=== PATIENT | male | born 1980 | race Caucasian/White ===

== ENCOUNTER 2017-05-07 05:28 | Emergency (ER) | payer OTHER ==
[2017-05-07] MEDS ORDERED: IBUP-1222 PO (05:37)
[2017-05-07] MEDS ORDERED: HYDROcodone/APAP 10/325 MG TABLET PO ONE ×2 (06:00→07:30)
[2017-05-07] MEDS ORDERED: DIAZEPAM 5 MG TABLET PO ONE (06:00)
[2017-05-07] MEDS ORDERED: DIAZEPAM 5 MG TABLET ONE (06:01)
[2017-05-07] MEDS ORDERED: HYDROcodone/APAP 10/325 MG TABLET ONE ×2 (06:02→07:06)
[2017-05-07] MEDS ORDERED: KETOROLAC 30 MG/1 ML ONE (07:05)
[2017-05-07] MEDS ORDERED: KETOROLAC 30 MG/1 ML IM ONE (07:30)
[2017-05-07] MEDS ORDERED: PROMETHAZINE 25 MG/ML, 1ML ONE (07:46)
[2017-05-07] MEDS ORDERED: PROMETHAZINE 25 MG/ML, 1ML IM ONE (08:00)
[2017-05-07 09:27] VITALS: BP 109/76
== END 2017-05-07 09:33 | disposition home or self-care (01) ==
LOC: ED 06:45
DX: S39.012A Strain of muscle, fascia and tendon of lower back, initial encounter (principal); X58.XXXA Exposure to other specified factors, initial encounter; Y93.89 Activity, other specified; Y92.89 Other specified places as the place of occurrence of the external cause; Y99.8 Other external cause status
CPT/HCPCS: 81001; 96372; 99284; J1885; J2550

== ENCOUNTER 2017-08-05 16:57 | Emergency (ER) | payer OTHER ==
[~2017-08-05] VITALS: Ht 188 cm; Wt 124.1 kg
[~2017-08-05 16:57] MED LIST: IBUP-1222 PO
[2017-08-05 17:00] VITALS: BP 150/93
[2017-08-05] MEDS ORDERED: IBUPROFEN 200 MG TABLET ONE (18:10)
[2017-08-05] MEDS ORDERED: IBUPROFEN 200 MG TABLET PO ONE (18:30)
== END 2017-08-05 19:02 | disposition home or self-care (01) ==
LOC: ED 18:45
DX: R07.89 Other chest pain (principal); H57.8 Other specified disorders of eye and adnexa; R42 Dizziness and giddiness
CPT/HCPCS: 71046; 93005; 99284

== ENCOUNTER 2017-11-20 12:41 | Inpatient (IN) | payer OTHER ==
[~2017-11-20] VITALS: Ht 188 cm; Wt 121.5 kg
[2017-11-20] MEDS ORDERED: MORPHINE SULFATE 4 MG/ML, 1ML IVPush PRN (13:30)
[2017-11-20] MEDS ORDERED: ONDANSETRON 2MG/ML, 2ML IVPush ONE (13:30)
[2017-11-20] MEDS ORDERED: SODIUM CHLORIDE FLUSH 10ML SYR IVF ONE (13:30)
[2017-11-20] MEDS ORDERED: PSYL0.5215 PO (13:35)
[2017-11-20] MEDS ORDERED: POLY17PO5 PO (13:35)
[2017-11-20] MEDS ORDERED: ONDANSETRON ODT 4 MG ONE (13:42)
[2017-11-20] MEDS ORDERED: MORPHINE SULFATE 4 MG/ML, 1ML ONE (13:42)
[2017-11-20 13:43] LABS: BASOPHILS # (AUTO) 0.04 x10^3/uL (0-0.1); BASOPHILS % (AUTO) 1 % (0-1); EOSINOPHILS # (AUTO) 0.08 x10^3/uL (0-0.4); EOSINOPHILS % (AUTO) 1 % (1-7); LYMPHOCYTES # (AUTO) 2.07 x10^3/uL (1-3.4); LYMPHOCYTES % (AUTO) 35 % (22-44); MD NO; MEAN CORPUSCULAR HEMOGLOBIN 30.2 pg (27.5-34.5); MEAN CORPUSCULAR HGB CONC 33.8 g/dL (33.2-36.2); MEAN CORPUSCULAR VOLUME 89.4 fL (81-97); MONOCYTES # (AUTO) 0.42 x10^3/uL (0.2-0.8); MONOCYTES % (AUTO) 7 % (2-9); NEUTROPHILS # (AUTO) 3.34 x10^3/uL (1.8-6.8); NEUTROPHILS % (AUTO) 56 % (42-75); PLATELET COUNT 220 x10^3/uL (130-400); RED BLOOD COUNT 5.61 x10^6/uL (4.38-5.82); RED CELL DISTRIBUTION WIDTH 13.5 % (9.4-14.8)
[2017-11-20 13:56] LABS: ALANINE AMINOTRANSFERASE 24 U/L (12-78); ALBUMIN 3.8 g/dL (3.4-5.0); ANION GAP 8 mmol/L (5-15); CALCIUM 8.3 mg/dL (8.5-10.1); CHLORIDE 108 mmol/L (98-107); CREATININE 0.98 mg/dL (0.7-1.3)
[2017-11-20 13:59] LABS: ALKALINE PHOSPHATASE 96 U/L (45-117); BILIRUBIN,TOTAL 0.6 mg/dL (0.2-1.0); TOTAL PROTEIN 7.7 g/dL (6.4-8.2)
[2017-11-20] MEDS ORDERED: OMNIPAQUE 350 MG/ML, 100ML BOTTLE ONE (14:50)
[2017-11-20] MEDS ORDERED: CEFOTETAN PMX 1GM/50ML 50 ML ONE (15:13)
[2017-11-20] MEDS ORDERED: METRONIDAZOLE PMX 500MG/100ML 100 ML IV ONE (15:30)
[2017-11-20] MEDS ORDERED: CEFOTETAN PMX 2GM/50ML 50 ML IV ONE (15:30)
[2017-11-20] MEDS ORDERED: METRONIDAZOLE PMX 500MG/100ML 100 ML ONE (16:46)
[2017-11-20] MEDS: SODIUM CHLORIDE 0.9% 1,000 ML IV SCH ×2 (16:47→22:00)
[2017-11-20] MEDS ORDERED: morphine SULFATE 10 MG/ML, 1ML IVPush PRN (17:00)
[2017-11-20 20:00] VITALS: BP 108/66
[2017-11-20] MEDS: METRONIDAZOLE PMX 500MG/100ML 100 ML IV SCH (23:10)
[2017-11-21 02:21] VITALS: BP 118/76
[2017-11-21] MEDS ORDERED: CEFOTETAN PMX 2GM/50ML 50 ML IV SCH (05:00)
[2017-11-21] MEDS: SODIUM CHLORIDE 0.9% 1,000 ML IV SCH (05:02)
[2017-11-21] MEDS: METRONIDAZOLE PMX 500MG/100ML 100 ML IV SCH (05:02)
[2017-11-21 05:18] LABS: BASOPHILS # (AUTO) 0.04 x10^3/uL (0-0.1); BASOPHILS % (AUTO) 1 % (0-1); EOSINOPHILS % (AUTO) 2 % (1-7); LYMPHOCYTES # (AUTO) 1.58 x10^3/uL (1-3.4); LYMPHOCYTES % (AUTO) 32 % (22-44); MD NO; MEAN CORPUSCULAR HEMOGLOBIN 30.1 pg (27.5-34.5); MEAN CORPUSCULAR HGB CONC 33.6 g/dL (33.2-36.2); MEAN CORPUSCULAR VOLUME 89.4 fL (81-97); MEAN PLATELET VOLUME 9.1 fL (7.4-10.4); MONOCYTES # (AUTO) 0.43 x10^3/uL (0.2-0.8); MONOCYTES % (AUTO) 9 % (2-9); NEUTROPHILS # (AUTO) 2.76 x10^3/uL (1.8-6.8); NEUTROPHILS % (AUTO) 56 % (42-75); PLATELET COUNT 203 x10^3/uL (130-400); RED BLOOD COUNT 5.26 x10^6/uL (4.38-5.82); RED CELL DISTRIBUTION WIDTH 13.8 % (9.4-14.8)
[2017-11-21 05:23] LABS: ANION GAP 7 mmol/L (5-15); CALCIUM 8.6 mg/dL (8.5-10.1); CHLORIDE 110 mmol/L (98-107)
[2017-11-21 06:56] VITALS: BP 147/70
[2017-11-21] MEDS: PANTOPRAZOLE 40 MG IV IVPush SCH ×2 (07:30→08:41)
[2017-11-21] MEDS ORDERED: metroNIDAZOLE 500 MG TABLET PO SCH (10:00)
[2017-11-21 13:04] VITALS: BP 130/79
[2017-11-21] MEDS ORDERED: FLU VACC QS2017-18 (36MOS+) UP/PF 0.5 ML IM-VACC ONE (14:00)
[2017-11-21] MEDS ORDERED: METR500T PO (14:51)
[2017-11-21] MEDS ORDERED: CIPR500T87 PO (14:51)
[2017-11-21] MEDS ORDERED: OMEP-110 PO (14:51)
[2017-11-21] MEDS ORDERED: CIPROFLOXACIN 500 MG TABLET PO SCH (15:00)
[2017-11-21] MEDS ORDERED: SODIUM CHLORIDE 0.9% 1,000 ML IV SCH (16:47)
== END 2017-11-21 17:05 | disposition home or self-care (01) | DRG 378 ==
LOC: ED 14:58 → EDIP 15:42 → 4NOR 18:25 → DCLOUNGE 11-21 14:45
PROVIDERS: ADMIT Internal Medicine Pulmonary Disease; ATTEND Internal Medicine Pulmonary Disease
DX: K57.21 Diverticulitis of large intestine with perforation and abscess with bleeding (principal); K56.699 Other intestinal obstruction unspecified as to partial versus complete obstruction; F19.20 Other psychoactive substance dependence, uncomplicated; K29.71 Gastritis, unspecified, with bleeding; G89.29 Other chronic pain; Z80.0 Family history of malignant neoplasm of digestive organs; Z85.038 Personal history of other malignant neoplasm of large intestine; E66.9 Obesity, unspecified; Z68.34 Body mass index [BMI] 34.0-34.9, adult; Z23 Encounter for immunization
CPT/HCPCS: 36415; 74177; 80048; 80053; 82378; 85025; 90686; 96365; 96368; 96375; J2405; Q9967; C9113; J7030; S0074

== ENCOUNTER 2018-06-22 17:46 | Emergency (ER) | payer OTHER ==
[~2018-06-22] VITALS: Ht 188 cm; Wt 125.5 kg
[~2018-06-22 17:46] MED LIST changes: +CIPR500T87 PO; +METR500T PO; +OMEP-110 PO; +POLY17PO5 PO; +PSYL0.5215 PO
[2018-06-22 17:47] VITALS: BP 143/90
[2018-06-22] MEDS ORDERED: HYDROcodone/APAP 5/325 TABLET ONE (18:23)
[2018-06-22] MEDS ORDERED: KETOROLAC 30 MG/1 ML ONE (18:23)
[2018-06-22] MEDS ORDERED: METHOCARBAMOL 750 MG TABLET ONE (18:23)
[2018-06-22] MEDS ORDERED: METHOCARBAMOL 750 MG TABLET PO ONE (18:30)
[2018-06-22] MEDS ORDERED: KETOROLAC 30 MG/1 ML IM ONE (18:30)
[2018-06-22] MEDS ORDERED: HYDROcodone/APAP 5/325 TABLET PO ONE (18:30)
== END 2018-06-22 19:48 | disposition home or self-care (01) ==
LOC: ED 18:49
DX: S39.012A Strain of muscle, fascia and tendon of lower back, initial encounter (principal); S83.92XA Sprain of unspecified site of left knee, initial encounter; M47.896 Other spondylosis, lumbar region; V43.52XA Car driver injured in collision with other type car in traffic accident, initial encounter; Y93.89 Activity, other specified; Y92.89 Other specified places as the place of occurrence of the external cause; Y99.8 Other external cause status
CPT/HCPCS: 29505; 72110; 73564; 96372; 99283; J1885

== ENCOUNTER 2018-07-02 14:20 | Emergency (ER) | payer OTHER ==
[~2018-07-02] VITALS: Ht 188 cm; Wt 126.3 kg
[2018-07-02 14:22] VITALS: BP 147/94
[2018-07-02] MEDS ORDERED: METH750T2 PO (15:55)
== END 2018-07-02 16:23 | disposition home or self-care (01) ==
LOC: ED 16:13
DX: M54.16 Radiculopathy, lumbar region (principal); Z85.038 Personal history of other malignant neoplasm of large intestine
CPT/HCPCS: 99283

== ENCOUNTER → 2018-08-22 | Outpatient (CLI) | payer OTHER ==
[~2018-08-22] MED LIST changes: +METH750T2 PO; +OMNIPAQUE 350 MG/ML, 100ML BOTTLE ONE
== END | disposition home or self-care (01) ==
LOC: CFH 14:11
PROVIDERS: ATTEND Internal Medicine
DX: K80.20 Calculus of gallbladder without cholecystitis without obstruction (principal); K21.9 Gastro-esophageal reflux disease without esophagitis; K44.9 Diaphragmatic hernia without obstruction or gangrene
CPT/HCPCS: 74177; Q9967

== ENCOUNTER 2018-10-11 06:09 | Inpatient (IN) | payer OTHER ==
[2018-10-08 15:57] LABS: BASOPHILS # (AUTO) 0.03 x10^3/uL (0-0.1); BASOPHILS % (AUTO) 0 % (0-1); EOSINOPHILS # (AUTO) 0.08 x10^3/uL (0-0.4); EOSINOPHILS % (AUTO) 1 % (1-7); LYMPHOCYTES # (AUTO) 1.85 x10^3/uL (1-3.4); LYMPHOCYTES % (AUTO) 26 % (22-44); MD NO; MEAN CORPUSCULAR HEMOGLOBIN 31.3 pg (27.5-34.5); MEAN CORPUSCULAR HGB CONC 34.5 g/dL (33.2-36.2); MEAN CORPUSCULAR VOLUME 90.6 fL (81-97); MEAN PLATELET VOLUME 9.3 fL (7.4-10.4); MONOCYTES # (AUTO) 0.36 x10^3/uL (0.2-0.8); MONOCYTES % (AUTO) 5 % (2-9); NEUTROPHILS % (AUTO) 68 % (42-75); PLATELET COUNT 220 x10^3/uL (130-400); RED BLOOD COUNT 5.44 x10^6/uL (4.38-5.82); RED CELL DISTRIBUTION WIDTH 12.8 % (9.4-14.8)
[2018-10-08 16:08] LABS: ALANINE AMINOTRANSFERASE 22 U/L (12-78); ALBUMIN 4.2 g/dL (3.4-5.0); ANION GAP 4 mmol/L (5-15); CALCIUM 8.7 mg/dL (8.5-10.1); CHLORIDE 109 mmol/L (98-107); CREATININE 0.92 mg/dL (0.7-1.3)
[2018-10-08 16:11] LABS: ALKALINE PHOSPHATASE 83 U/L (45-117); BILIRUBIN,TOTAL 0.5 mg/dL (0.2-1.0); TOTAL PROTEIN 7.8 g/dL (6.4-8.2)
[~2018-10-11] VITALS: Ht 189.2 cm; Wt 122.0 kg
[~2018-10-11 06:09] MED LIST changes: +MULT-658 PO; -OMNIPAQUE 350 MG/ML, 100ML BOTTLE ONE; +PSYL174P2 PO
[2018-10-11] MEDS ORDERED: LACTATED RINGERS 1,000 ML IV SCH (06:29)
[2018-10-11] MEDS ORDERED: INDOCYANINE GREEN 25 MG VIAL ONE (07:02)
[2018-10-11] MEDS ORDERED: BUPIVACAINE/PF-EPI 0.5% 1:200K ONE (07:02)
[2018-10-11] MEDS ORDERED: FLUORESCEIN SODIUM 500 MG/5 ML ONE (07:02)
[2018-10-11] MEDS ORDERED: INDIGO CARMINE 0.8%, 5ML ONE (07:02)
[2018-10-11] MEDS ORDERED: MIDAZOLAM 1 MG/ML, 2ML ONE (07:34)
[2018-10-11] MEDS ORDERED: FENTANYL PF 100 MCG/2ML ONE ×7 (07:35→13:30)
[2018-10-11] MEDS ORDERED: LABETALOL 5MG/ML, 20ML ONE ×2 (07:42→11:04)
[2018-10-11] MEDS ORDERED: PROPOFOL 10 MG/ML, 20ML ONE (07:42)
[2018-10-11] MEDS ORDERED: ONDANSETRON 2MG/ML, 2ML ONE (07:42)
[2018-10-11] MEDS ORDERED: VASOPRESSIN 20 UNIT/ML, 1ML ONE (07:42)
[2018-10-11] MEDS ORDERED: ROCURONIUM 10 MG/ML,10ML ONE (07:42)
[2018-10-11] MEDS ORDERED: DEXAMETHASONE 4 MG/ML, 5ML ONE (07:42)
[2018-10-11] MEDS ORDERED: CEFOTETAN 2 GM ONE (07:42)
[2018-10-11] MEDS ORDERED: ACETAMINOPHEN 1,000 MG/100 ML IV IVPB ONE (11:30)
[2018-10-11] MEDS ORDERED: SUGAMMADEX 200 MG/2 ML IVPush ONE (11:41)
[2018-10-11] MEDS ORDERED: MEPERIDINE/PF 25MG/ML,1ML ONE ×2 (12:03→12:25)
[2018-10-11] MEDS: FENTANYL PF 100 MCG/2ML IV PRN ×5 (12:08→13:32)
[2018-10-11] MEDS ORDERED: OXYcodone 5 MG/5 ML ORAL.SOL UDC ONE (12:25)
[2018-10-11] MEDS ORDERED: OXYcodone 5 MG/5 ML ORAL.SOL UDC PO PRN (12:30)
[2018-10-11] MEDS ORDERED: MIDAZOLAM 1 MG/ML, 2ML IV PRN (12:30)
[2018-10-11] MEDS ORDERED: LABETALOL 5MG/ML, 20ML IV PRN (12:30)
[2018-10-11] MEDS ORDERED: ONDANSETRON 2MG/ML, 2ML IVPush PRN (12:30)
[2018-10-11] MEDS ORDERED: MEPERIDINE/PF 25MG/0.5ML IVPush PRN (12:30)
[2018-10-11] MEDS ORDERED: HYDROmorphone 1 MG/ML, 1ML ONE (13:24)
[2018-10-11] MEDS: HYDROmorphone 1 MG/ML, 1ML IV PRN ×2 (13:27→13:39)
[2018-10-11] MEDS ORDERED: SCOPOLAMINE PATCH, 1.5MG PATCH.TD72 TD PRN (15:30)
[2018-10-11] MEDS ORDERED: MORPHINE SULFATE 4 MG/ML, 1ML IVPush PRN (15:30)
[2018-10-11] MEDS ORDERED: DIPHENHYDRAMINE 50 MG/ML, 1ML IVPush PRN (15:30)
[2018-10-11] MEDS ORDERED: DEXAMETHASONE 4 MG/ML, 1ML IVPush PRN (15:30)
[2018-10-11] MEDS ORDERED: ONDANSETRON 2MG/ML, 2ML IV PRN (15:30)
[2018-10-11] MEDS ORDERED: DIPHENHYDRAMINE 25 MG CAPSULE PO PRN (15:30)
[2018-10-11] MEDS ORDERED: LORazepam 2 MG/ML, 1ML IVPush PRN (15:30)
[2018-10-11] MEDS ORDERED: LORazepam 1MG TABLET PO PRN (15:30)
[2018-10-11] MEDS ORDERED: HALOPERIDOL 5 MG/ML IVPush PRN (15:30)
[2018-10-11] MEDS: KETOROLAC 30 MG/1 ML IVPush SCH ×2 (15:30→21:53)
[2018-10-11] MEDS: PIPERACILLIN/TAZO/PMX 3.375GM 50 ML IV SCH ×2 (17:44→23:56)
[2018-10-11] MEDS: ACETAMINOPHEN 500 MG TABLET PO SCH ×2 (17:44→21:53)
[2018-10-11] MEDS: OXYcodone IR 5MG TABLET PO PRN (18:20)
[2018-10-11 18:38] VITALS: BP 148/92
[2018-10-12 00:02] VITALS: BP 126/89
[2018-10-12 03:25] VITALS: BP 141/84
[2018-10-12] MEDS: KETOROLAC 30 MG/1 ML IVPush SCH ×4 (03:42→21:56)
[2018-10-12] MEDS: ACETAMINOPHEN 500 MG TABLET PO SCH ×4 (03:43→21:56)
[2018-10-12 05:38] LABS: BASOPHILS % (AUTO) 0 % (0-1); EOSINOPHILS % (AUTO) 0 % (1-7); LYMPHOCYTES # (AUTO) 0.83 x10^3/uL (1-3.4); LYMPHOCYTES % (AUTO) 8 % (22-44); MD NO; MEAN CORPUSCULAR HEMOGLOBIN 30.7 pg (27.5-34.5); MEAN CORPUSCULAR HGB CONC 33.6 g/dL (33.2-36.2); MEAN CORPUSCULAR VOLUME 91.2 fL (81-97); MEAN PLATELET VOLUME 9.1 fL (7.4-10.4); MONOCYTES # (AUTO) 0.81 x10^3/uL (0.2-0.8); MONOCYTES % (AUTO) 8 % (2-9); NEUTROPHILS # (AUTO) 8.87 x10^3/uL (1.8-6.8); NEUTROPHILS % (AUTO) 84 % (42-75); PLATELET COUNT 205 x10^3/uL (130-400); RED BLOOD COUNT 4.76 x10^6/uL (4.38-5.82); RED CELL DISTRIBUTION WIDTH 12.6 % (9.4-14.8)
[2018-10-12 05:48] LABS: ANION GAP 4 mmol/L (5-15); CALCIUM 8.4 mg/dL (8.5-10.1); CHLORIDE 107 mmol/L (98-107)
[2018-10-12 05:50] LABS: CREATININE 1.15 mg/dL (0.7-1.3)
[2018-10-12] MEDS: PIPERACILLIN/TAZO/PMX 3.375GM 50 ML IV SCH ×3 (06:10→18:21)
[2018-10-12] MEDS: OMEPRAZOLE 20 MG CAPSULE.DR PO SCH (06:13)
[2018-10-12 06:56] VITALS: BP 118/71
[2018-10-12] MEDS: ENOXAPARIN 40 MG/0.4 ML SQ SCH (09:09)
[2018-10-12] MEDS: SODIUM CHLORIDE FLUSH 10ML SYR IVF SCH ×2 (09:10→21:56)
[2018-10-12 12:30] VITALS: BP 129/80
[2018-10-12] MEDS: OXYcodone IR 5MG TABLET PO PRN (18:21)
[2018-10-12 19:03] VITALS: BP 137/79
[2018-10-13] MEDS: PIPERACILLIN/TAZO/PMX 3.375GM 50 ML IV SCH ×3 (01:02→12:51)
[2018-10-13 02:32] VITALS: BP 146/72
[2018-10-13] MEDS: KETOROLAC 30 MG/1 ML IVPush SCH ×3 (03:35→15:17)
[2018-10-13] MEDS: ACETAMINOPHEN 500 MG TABLET PO SCH ×3 (03:35→17:39)
[2018-10-13 05:47] LABS: ANION GAP 5 mmol/L (5-15); CALCIUM 8.5 mg/dL (8.5-10.1); CHLORIDE 110 mmol/L (98-107)
[2018-10-13 05:48] LABS: CREATININE 1.08 mg/dL (0.7-1.3)
[2018-10-13 05:54] LABS: MEAN CORPUSCULAR HEMOGLOBIN 31.4 pg (27.5-34.5); MEAN CORPUSCULAR HGB CONC 34.5 g/dL (33.2-36.2); MEAN CORPUSCULAR VOLUME 91.1 fL (81-97); MEAN PLATELET VOLUME 8.9 fL (7.4-10.4); PLATELET COUNT 176 x10^3/uL (130-400); RED BLOOD COUNT 4.51 x10^6/uL (4.38-5.82); RED CELL DISTRIBUTION WIDTH 13.2 % (9.4-14.8)
[2018-10-13] MEDS: OMEPRAZOLE 20 MG CAPSULE.DR PO SCH (06:41)
[2018-10-13 08:00] VITALS: BP 138/86
[2018-10-13 08:27] LABS: BASOPHILS # (AUTO) 0.01 x10^3/uL (0-0.1); BASOPHILS % (AUTO) 0 % (0-1); EOSINOPHILS # (AUTO) 0.02 x10^3/uL (0-0.4); EOSINOPHILS % (AUTO) 0 % (1-7); LYMPHOCYTES # (AUTO) 1.67 x10^3/uL (1-3.4); LYMPHOCYTES % (AUTO) 24 % (22-44); MD SCAN; MONOCYTES % (AUTO) 11 % (2-9); NEUTROPHILS # (AUTO) 4.62 x10^3/uL (1.8-6.8); NEUTROPHILS % (AUTO) 65 % (42-75)
[2018-10-13] MEDS: SODIUM CHLORIDE FLUSH 10ML SYR IVF SCH (09:00)
[2018-10-13] MEDS: ENOXAPARIN 40 MG/0.4 ML SQ SCH (09:00)
[2018-10-13] MEDS ORDERED: AMOX1TAB64 PO (09:56)
[2018-10-13] MEDS ORDERED: OXYC-302 PO (09:57)
[2018-10-13 14:00] VITALS: BP 147/88
== END 2018-10-13 17:35 | disposition home or self-care (01) | DRG 331 ==
LOC: ORIP 06:09 → 4NOR 15:00
PROVIDERS: ADMIT Colon & Rectal Surgery; ATTEND Colon & Rectal Surgery
PROC: 0DBN4ZZ Excision of Sigmoid Colon, Percutaneous Endoscopic Approach (ICD-10-PCS; 2018-10-11)
PROC: 8E0W4CZ Robotic Assisted Procedure of Trunk Region, Percutaneous Endoscopic Approach (ICD-10-PCS; 2018-10-11)
PROC: 0W9J4ZZ Drainage of Pelvic Cavity, Percutaneous Endoscopic Approach (ICD-10-PCS; principal; 2018-10-11 07:30)
DX: K57.20 Diverticulitis of large intestine with perforation and abscess without bleeding (principal); K21.9 Gastro-esophageal reflux disease without esophagitis; E66.01 Morbid (severe) obesity due to excess calories; Z68.34 Body mass index [BMI] 34.0-34.9, adult; B95.4 Other streptococcus as the cause of diseases classified elsewhere; B96.89 Other specified bacterial agents as the cause of diseases classified elsewhere
CPT/HCPCS: 36415; J3490; 80048; 80053; 83735; 85025; 86850; 86900; 87070; 87075; 87077; 87205; 88307; 93005; G0378; J1100; J1170; J1650; J1885; J2175; J2250; J2405; J2543; J2704; J3010; J7120

== ENCOUNTER 2018-12-15 06:53 | Emergency (ER) | payer SELFPAY ==
[~2018-12-15] VITALS: Ht 188 cm; Wt 123.8 kg
[~2018-12-15 06:53] MED LIST changes: +AMOX1TAB64 PO; +OXYC-302 PO
[2018-12-15] MEDS ORDERED: ONDANSETRON ODT 4 MG PO ONE (07:30)
[2018-12-15] MEDS ORDERED: FAMOTIDINE 20 MG TABLET PO ONE (07:30)
[2018-12-15] MEDS ORDERED: ONDANSETRON ODT 4 MG ONE (07:49)
[2018-12-15] MEDS ORDERED: FAMOTIDINE 20 MG TABLET ONE (07:49)
[2018-12-15 07:50] LABS: BASOPHILS # (AUTO) 0.05 x10^3/uL (0-0.1); BASOPHILS % (AUTO) 0 % (0-1); EOSINOPHILS # (AUTO) 0.04 x10^3/uL (0-0.4); EOSINOPHILS % (AUTO) 0 % (1-7); LYMPHOCYTES # (AUTO) 1.22 x10^3/uL (1-3.4); LYMPHOCYTES % (AUTO) 12 % (22-44); MD NO; MEAN CORPUSCULAR HEMOGLOBIN 30.9 pg (27.5-34.5); MEAN CORPUSCULAR HGB CONC 33.1 g/dL (33.2-36.2); MEAN CORPUSCULAR VOLUME 93.3 fL (81-97); MEAN PLATELET VOLUME 8.7 fL (7.4-10.4); MONOCYTES # (AUTO) 0.92 x10^3/uL (0.2-0.8); MONOCYTES % (AUTO) 9 % (2-9); NEUTROPHILS # (AUTO) 8.26 x10^3/uL (1.8-6.8); NEUTROPHILS % (AUTO) 79 % (42-75); PLATELET COUNT 224 x10^3/uL (130-400); RED BLOOD COUNT 4.82 x10^6/uL (4.38-5.82); RED CELL DISTRIBUTION WIDTH 12.9 % (9.4-14.8)
[2018-12-15 07:52] LABS: ALANINE AMINOTRANSFERASE 27 U/L (12-78); ALBUMIN 3.1 g/dL (3.4-5.0); ANION GAP 8 mmol/L (5-15); CALCIUM 8.9 mg/dL (8.5-10.1); CHLORIDE 106 mmol/L (98-107); CREATININE 0.91 mg/dL (0.7-1.3)
[2018-12-15 07:54] VITALS: BP 108/74
[2018-12-15 07:54] LABS: ALKALINE PHOSPHATASE 135 U/L (45-117); BILIRUBIN,TOTAL 0.6 mg/dL (0.2-1.0); TOTAL PROTEIN 7.4 g/dL (6.4-8.2)
--- NOTE | 2018-12-15 07:59 | NUR ---
Pt presents to ED fr 3 days of no BM, nausea, vomiting 3 x last 24 hours. Tender to upper abd. No diarrhea. NAD at this time. Subjective fever at home.
[2018-12-15 08:01] LABS: MICROSCOPIC NOT IND
[2018-12-15 08:07] LABS: CULTURE INDICATED? NO
--- NOTE | 2018-12-15 09:16 | NUR ---
MONALISA RN: DC ORDERS IN, WENT IN ROOM TO DC PATIENT, PATIENT NOT IN ROOM, LEFT PRIOR TO RECEIVING DC PAPERWORK. UNABLE TO OBTAIN DC V/S.
== END 2018-12-15 09:19 | disposition home or self-care (01) ==
LOC: ED 08:25
DX: K59.00 Constipation, unspecified (principal); R11.2 Nausea with vomiting, unspecified
CPT/HCPCS: 36415; 74021; 80053; 81003; 83690; 85025; 99284; Q0162